=== PATIENT | female | born 1985 | race Caucasian/White ===

== ENCOUNTER → 2022-03-06 | Outpatient (CLI) | payer OTHER, SELFPAY ==
[2022-03-06 10:30] LABS: Absolute Lymphocyte Count 1.68 X10^3/uL (0.83-4.51); Absolute Neutrophil Count 2.6 X10^3/uL (2.0-7.7); Basophil# 0.01 X10^3/uL; Basophil% 0.2 % (0-1); Eosinophil# 0.06 X10^3/uL; Eosinophils% 1.3 % (0-5); Hemoglobin 12.6 g/dL (12.0-15.0); Lymphocyte # 1.68 X10^3/ul (0.83-4.51); Lymphocyte % 35.9 % (19-41); Mean Corp Hgb Conc 31.5 g/dL (32-36); Mean Corpuscular Hgb 28.3 pg (27.0-32.0); Mean Corpuscular Volume 89.9 fL (81-99); Mean Platelet Vol. 13.2 fl (6.2-12.0); Monocyte# 0.33 X10^3/uL; Monocyte% 7.1 % (0-10); NRBC Flagged by Analyzer 0 % (0-5); Neutrophil # 2.59 X10^3/uL (2.7-7.7); Neutrophil % 55.3 % (47-70); Platelet Count 179 K/mm3 (150-450); RBC Distribution Width SD 42.6 fl (35.1-43.9); Red Blood Count 4.45 M/mm3 (4.2-5.4); White Blood Count 4.7 K/mm3 (4.4-11.0)
[2022-03-06 10:59] LABS: ALB/GLOB Ratio 0.8 RATIO (0.9-2.4); AST(SGOT) 11 U/L (15-37); Alanine Aminotransfer ALT/SGPT 19 U/L (13-56); Albumin, Serum 3.1 g/dL (3.2-5.0); Alkaline Phosphatase 47 U/L (45-117); Anion Gap 8 (5-15); BUN 9 mg/dL (7-18); BUN/Creat Ratio 15.1 RATIO (10-20); Calcium,Total 8.8 mg/dL (8.5-10.1); Chloride 103 mmol/L (98-107); Cholesterol 217 mg/dL (200); EST Glomerular Filtration Rate 121 mL/min (>60); Est Glom Filt Rate - Afr Amer 146 mL/min (>60); Globulin 3.9 g/dL (2.2-4.2); Glucose 122 mg/dL (74-106); High Density Lipoprotein 67 mg/dL; Potassium 3.9 mmol/L (3.5-5.1); Sodium Level 138 mmol/L (136-145); Thyroid Stim Hormone (TSH) 2.51 uIU/mL (0.358-3.74); Triglycerides 102 mg/dL; Very Low Density Lipoprotein 20 mg/dL (5-40)
[2022-03-06 11:18] LABS: T3 Total - Triiodothyronine 1.49 ng/mL (0.6-1.81)
== END | disposition home or self-care (01) ==
DX: E66.9 Obesity, unspecified (principal)
CPT/HCPCS: 36415; 80053; 80061; 84436; 84443; 84480; 85025

== ENCOUNTER → 2023-01-08 | Outpatient (CLI) | payer OTHER, SELFPAY ==
[2023-01-08 12:02] LABS: Absolute Lymphocyte Count 2.24 X10^3/uL (0.83-4.51); Absolute Neutrophil Count 2.5 X10^3/uL (2.0-7.7); Basophil# 0.03 X10^3/uL; Basophil% 0.6 % (0-1); Eosinophil# 0.05 X10^3/uL; Eosinophils% 0.9 % (0-5); Hematocrit 40.9 % (37-47); Lymphocyte # 2.24 X10^3/ul (0.83-4.51); Mean Corp Hgb Conc 31.8 g/dL (32-36); Mean Corpuscular Hgb 28.8 pg (27.0-32.0); Mean Corpuscular Volume 90.7 fL (81-99); Mean Platelet Vol. 12.1 fl (6.2-12.0); Monocyte% 9.4 % (0-10); NRBC Flagged by Analyzer 0 % (0-5); Neutrophil # 2.49 X10^3/uL (2.7-7.7); Neutrophil % 46.7 % (47-70); Platelet Count 219 K/mm3 (150-450); Red Blood Count 4.51 M/mm3 (4.2-5.4); White Blood Count 5.3 K/mm3 (4.4-11.0)
[2023-01-08 12:45] LABS: AST(SGOT) 12 U/L (15-37); Alanine Aminotransfer ALT/SGPT 16 U/L (13-56); Albumin, Serum 3.4 g/dL (3.2-5.0); Alkaline Phosphatase 32 U/L (45-117); Anion Gap 3 (5-15); BUN 9 mg/dL (7-18); BUN/Creat Ratio 16.4 RATIO (10-20); Calcium,Total 8.8 mg/dL (8.5-10.1); Chloride 107 mmol/L (98-107); Cholesterol 239 mg/dL (200); Creatinine, Serum 0.55 mg/dL (0.55-1.02); EST Glomerular Filtration Rate 133 mL/min (>60); Est Glom Filt Rate - Afr Amer 160 mL/min (>60); Globulin 3.4 g/dL (2.2-4.2); Glucose 74 mg/dL (74-106); High Density Lipoprotein 74 mg/dL; Potassium 4.2 mmol/L (3.5-5.1); Protein, Total 6.8 g/dL (6.4-8.2); Sodium Level 139 mmol/L (136-145); Thyroid Stim Hormone (TSH) 1.04 uIU/mL (0.358-3.74); Triglycerides 82 mg/dL; Very Low Density Lipoprotein 16 mg/dL (5-40)
[2023-01-08 13:14] LABS: HIV - WCH Non-Reactive (Nonreactive); Hepatitis C Antibody Non-Reactive (Nonreactive)
== END | disposition home or self-care (01) ==
LOC: LAB 11:17
PROVIDERS: PCP Registered Nurse; Referring Provider Registered Nurse; Visit Provider Registered Nurse
DX: Z01.812 Encounter for preprocedural laboratory examination (principal); Z00.00 Encounter for general adult medical examination without abnormal findings
CPT/HCPCS: 36415; 80053; 80061; 84443; 85025; 86703; 86803

== ENCOUNTER 2023-02-15 06:07 | Day surgery (SDC) | payer OTHER, SELFPAY ==
[2023-02-15] VITALS (8 sets, daily range): BP systolic 88–108; BP diastolic 55–81; PULSE 92–149; RESP 16; TEMP 36.5–37.3; O2SAT 94–100; BMI 22.1
[2023-02-15 06:43] LABS: Internal QC Validated? YES +Cl - CLEAR BKGD; Pregnancy, Urine Negative Negative
[2023-02-15] MEDS: Lactated Ringers 1,000 ML 15 ML IV (06:46)
--- NOTE | 2023-02-15 07:30 | BR_PTH ---
PATIENT: EMI ACEVEDO LOC: [facility] U#:[id number] AGE/SX: 38/F ROOM: RE02/15/[address]: Dr. Joslyn Huerta MD : 1985 BED: DIS: 02/15/2023 SPEC #: [id number] RECD: 02/15/23 14:30 STATUS: EVE MARTIN #: [id number] AL: 02/15/23 07:[address]: Joslyn Huerta DEPT: SURGICAL PATHOLOGY RECD BY: Flory Smith ENTERED: 02/18/23 10:57 SP TYPE: MAMOPLASTY OTHR DR: CRISTIANA US Tissues: A - Right breast, NOS B - Left breast, NOS Procedures: Surgery Specimen Level IV HEADER OPERATION: Breast reduction PRE-OP DIAGNOSIS: Chronic shoulder pain, breast hypertrophy, neck pain TISSUE SUBMITTED: A - Right breast tissue 204 gm, B - Left breast tissue 204 gm MICROSCOPIC DIAGNOSIS A. Right breast tissue (204 gm), breast reduction mammoplasty: Benign breast tissue with focal dense fibrosis. Skin, no pathologic diagnosis. B. Left breast tissue (204 gm), breast reduction mammoplasty: Benign breast tissue with focal dense fibrosis. Skin, no pathologic diagnosis. CORIN:melyssa 02/19/2023 MICROSCOPIC DESCRIPTION Slides are reviewed. GROSS DESCRIPTION A - Received in fixative is one container labeled with the patient's name and designated right breast tissue 204 gm. The specimen consists of multiple pieces of fibroadipose tissue with a few of the pieces showing guthrie-white skin measuring in aggregate 15.0 x 15.0 x 4.0 cm. The specimen was weighed fresh in OR and weighs 204 gm. No skin lesion is identified. Sections reveal yellow adipose cut surfaces mixed with scant fibrous areas. No mass lesion is identified. Personnel Manager sections are submitted in six cassettes. Cassette 1 contains the skin piece. B - Received in fixative is one container labeled with the patient's name and designated left breast tissue. The specimen consists of multiple pieces of fibroadipose tissue with a few of the pieces showing guthrie-white skin measuring in aggregate 15.0 x 15.0 x 4.5 cm. The specimen was weighed fresh in OR and weighs 204 gm. No skin lesion is identified. Sections reveal yellow adipose cut surfaces mixed with scant fibrous areas. No mass lesion is identified. Personnel Manager sections are submitted in six cassettes. Cassette 1 contains the skin piece. / CORIN:melyssa 02/18/2023 TC:5 CPT: 22725 x2
--- NOTE | 2023-02-15 07:31 | PCM.HP.BLA ---
History and Physical Pt examined and there are no changes to medical clearance dated 02/12/23. Pt with bilat. mammary hypertrophy. For breast reduction Assessment & Plan Assessment/Plan (1) Chronic shoulder pain: (2) Breast hypertrophy: (3) Neck pain of over 3 months duration: PLAN: Plan For breast reduction.
[2023-02-15] MEDS: Cefazolin 2 GM in 0.9% Normal Saline 100 ML IV (07:44)
[2023-02-15] MEDS: Epinephrine (1 mg/ml) 1 MG/ML VIAL ×2 (08:15)
[2023-02-15] MEDS: Gentamicin 80 MG/2 ML Vial (08:15)
[2023-02-15] MEDS: Bupivacaine 0.25% 30 ML Vial (12:50)
--- NOTE | 2023-02-15 13:11 | DCINST_ITS ---
Discharge Instructions Diet Discharge Diet: No restrictions Activity Additional Activity Instructions:: Follow instructions given in the office. Follow Up Care Please Follow Up With: Joslyn Huerta MD When: As directed Test Results: Test results from this visit will be discussed in further detail at your follow- up appointment, if applicable. Discharge Plan Admission Attending Provider: Joslyn Huerta Primary Care Provider: MEREDITH ALAS Discharge Orders/Prescriptions Prescriptions: No Action albuterol sulfate 90 mcg/actuation HFA aerosol inhaler 2 puff inhalation Q6H PRN (Reason: ASHTHMA) duloxetine [Cymbalta] 60 mg capsule,delayed release(DR/EC) 60 mg PO DAILY alprazolam [Xanax] 0.25 mg tablet 0.25 mg PO QHS PRN (Reason: anxiety) cephalexin 500 mg capsule 500 mg PO BID Qty: 14 0RF Referrals / Follow Up: MEREDITH ALAS, KEYBOARD OPERATOR-C [Primary Care Provider] - Disposition Disposition (needs filled in before D/C Order can be placed): Home, Self Care
--- NOTE | 2023-02-15 13:13 | OP.PCM_ITS ---
Problems Associated Problem List Diagnoses (1) Chronic shoulder pain: (2) Neck pain of over 3 months duration: (3) Breast hypertrophy: Report of Operation Date of Procedure: 02/15/23 Pre-Operative Diagnosis: Breast hypertrophy, back pain Post-Operative Diagnosis: Same Surgery/Procedure Performed:: Bilateral breast reduction (right?204 g, left?204 g) Surgeon: Joslyn Huerta Type of Anesthesia: General Specimen's removed: Breast tissue from both breasts placed in formalin after weighing Drains: None Estimated Blood Loss (mL): <100cc Description of Procedure: The procedure breast reduction been thoroughly reviewed with the patient eluding the expected pre-, intra-, and postoperative course. The patient is marked in the holding area prior to the procedure. Informed consent has been obtained. The patient was brought to the operating room and placed under general anesthesia in the supine position. Care is taken to pad all pressure points, insert a Lott catheter, a warming blanket, and sequential compression stockings. The breast and chest are prepped and draped in the usual sterile fashion. We initially began with incising all the incisions. Following this, the pedicle was de-epithelialized leaving a 42 mm island of skin around the nipple. The medial and lateral inferior aspects of the breast were then removed using argon coagulation. Following this, the upper flap is from the pedicle maintaining at least a 2 cm in thickness as dissection proceeded cephalad. The pedicle is then trimmed in order to allow it to comfortably fit beneath the upper flap. The wound is irrigated and checked for hemostasis which is insured with argon coagulation. A total of 204 g is removed from both the right and left breast. The specimens are weighed and then put in formalin to be sent to pathology. Once hemostasis is assured, the breast is infolded with silk suture and skin clips. The inframammary area is closed in 3 layers using a 3 OV lock suture as well as a few interrupted Vicryl sutures in a [id number] fashion. Approximately 4 cm above the inframammary crease, and the nipple areola is brought out through an opening. It is tacked in place with interrupted nylon suture. Further approximation and refinement of all the clos ures is done with a 3 oh V-Loc in a subcuticular fashion. The identical procedure was performed on the opposite side. Quarter percent plain Marcaine is injected along the incisions at the conclusion . The incisions were then dressed with Xeroform and fluff gauze and she is placed in a surgery bra. She tolerated the procedure well and was taken to the recovery area in an awake and stable condition. Needle and sponge counts are correct. Complications None Admit VTE Documentation VTE Mechan Device Prophylaxis: SCD's
[2023-02-15] MEDS: Oxycodone/Apap 5/325 Tablet PO (14:46)
== END 2023-02-15 16:31 | disposition home or self-care (01) ==
LOC: SDC 06:07 → AC 06:08
PROVIDERS: Anesthesiology; PCP Registered Nurse; Referring Provider Plastic Surgery; Visit Provider Plastic Surgery
PROC: 0H0U0ZZ Alteration of Left Breast, Open Approach (ICD-10-PCS; CPT 19318; principal; 2023-02-15 07:15)
DX: N62 Hypertrophy of breast (principal); N60.31 Fibrosclerosis of right breast; N60.32 Fibrosclerosis of left breast; M54.2 Cervicalgia; G89.29 Other chronic pain; Z79.899 Other long term (current) drug therapy; Z87.891 Personal history of nicotine dependence
CPT/HCPCS: 19318; 00402; 81025; 88305; J7120; J2405; Q9968

== ENCOUNTER → 2023-11-05 | Outpatient (CLI) | payer OTHER, SELFPAY ==
[2023-11-05 13:16] LABS: Bacteria 0 SEEN /hpf (None Seen); Mucous, Urine 0 SEEN /hpf (<or=2+); Red Blood Cells-Urine 0 SEEN /hpf (0-5); Squamous Epithelial Cells - UA 0 SEEN /hpf (5-10)
[2023-11-05 13:29] LABS: Color, Urine Yellow (Yellow); Glucose, Dipstick Normal (Normal); Ketone-Dipstick Negative (Negative); Leukocyte Esterase-Dipstick 500 /ul (Negative); Nitrite-Dipstick Positive (Negative); Occult Blood-Urine 10 /ul (Negative); Protein-Dipstick Negative (Negative); Specific Gravity, Urine 1.005 (1.002-1.030); Urine Bilirubin Dipstick 1 mg/dL (Negative); Urine Clarity Clear (Clear); Urine Urobilinogen 1 mg/dl (Normal); Urine pH 6.5 (5.0 - 8.0)
[2023-11-05 13:40] LABS: White Blood Cells 5-10 SEEN /hpf (0-5)
== END | disposition home or self-care (01) ==
LOC: LABSPEC 13:00
PROVIDERS: PCP Registered Nurse; Referring Provider Physician Assistant; Visit Provider Physician Assistant
DX: R30.0 Dysuria (principal)
CPT/HCPCS: 81001; 87086

== ENCOUNTER → 2024-01-02 | Outpatient (CLI) | payer OTHER, SELFPAY ==
[2024-01-02 16:57] LABS: Hematocrit 38.7 % (37-47); Hemoglobin 12.3 g/dL (12.0-15.0); Mean Corp Hgb Conc 31.8 g/dL (32-36); Mean Corpuscular Hgb 28.1 pg (27.0-32.0); Mean Corpuscular Volume 88.4 fL (81-99); Mean Platelet Vol. 12.5 fl (6.2-12.0); Platelet Count 203 K/mm3 (150-450); RBC Distribution Width CV 12.7 % (11.6-14.6); RBC Distribution Width SD 41.1 fl (35.1-43.9); Red Blood Count 4.38 M/mm3 (4.2-5.4); White Blood Count 5.8 K/mm3 (4.4-11.0)
[2024-01-02 17:13] LABS: AST(SGOT) 16 U/L (15-37); Alanine Aminotransfer ALT/SGPT 20 U/L (13-56); Albumin, Serum 3.4 g/dL (3.2-5.0); Alkaline Phosphatase 30 U/L (45-117); Anion Gap 6 (5-15); BUN 12 mg/dL (7-18); BUN/Creat Ratio 19.3 RATIO (10-20); Chloride 101 mmol/L (98-107); Cholesterol 222 mg/dL (200); Creatinine, Serum 0.62 mg/dL (0.55-1.02); EST Glomerular Filtration Rate 114 mL/min (>60); Est Glom Filt Rate - Afr Amer 138 mL/min (>60); Globulin 3.5 g/dL (2.2-4.2); Glucose 87 mg/dL (74-106); High Density Lipoprotein 93 mg/dL; Protein, Total 6.9 g/dL (6.4-8.2); Sodium Level 136 mmol/L (136-145); Triglycerides 63 mg/dL; Very Low Density Lipoprotein 13 mg/dL (5-40)
== END | disposition home or self-care (01) ==
LOC: BIMLAB 14:53
PROVIDERS: PCP Physician Assistant; Referring Provider Physician Assistant; Visit Provider Physician Assistant
DX: Z00.00 Encounter for general adult medical examination without abnormal findings (principal)
CPT/HCPCS: 36415; 80053; 80061; 85027

== ENCOUNTER → 2024-09-16 | Outpatient (CLI) | payer OTHER, SELFPAY ==
[2024-09-16 18:05] LABS: Hepatitis B Surface Antibody REAC
[2024-09-16 18:37] LABS: Rubella IgG REAC (Nonreactive)
[2024-09-18 06:07] LABS: Mumps Antibody,IgG < 9.0 AU/mL (Immune >10.9); Rubeola IgG Ab < 13.5 AU/mL (Immune >16.4)
== END | disposition home or self-care (01) ==
LOC: BIMLAB 15:03
PROVIDERS: PCP Physician Assistant; Referring Provider Physician Assistant; Visit Provider Physician Assistant
DX: Z02.0 Encounter for examination for admission to educational institution (principal)
CPT/HCPCS: 36415; 86706; 86735; 86762; 86765; 86787

== ENCOUNTER → 2024-11-04 | Outpatient (CLI) | payer OTHER, SELFPAY ==
--- NOTE | 2024-11-04 10:49 | RAD_ITS ---
PROCEDURE: CHEST PA AND LATERAL 11/04/2024 REASON FOR EXAM: COUGH TECHNIQUE: Frontal and lateral views of the chest. COMPARISON: None FINDINGS: Hardware: None Heart: The heart size is normal. Mediastinum: The mediastinal contour is unremarkable. Lungs: The lungs are clear. Bones: The bones are unremarkable. RAD/Chest PA and Lateral IMPRESSION: NO ACUTE FINDINGS. Reading Location: [id number]
== END | disposition home or self-care (01) ==
LOC: MTRAD 10:49
PROVIDERS: PCP Physician Assistant; Referring Provider Physician Assistant; Visit Provider Physician Assistant
DX: R05.9 Cough, unspecified (principal)
CPT/HCPCS: 71046